=== PATIENT | male | born 1970 | race Caucasian/White ===

== ENCOUNTER 2016-10-05 09:35 | Observation (INO) | payer BC, OTHER ==
[2016-10-05 11:01] LABS: Hematocrit 46 % (42-52); Hemoglobin 15.1 g/dl (14.0-18.0); Mean Corpuscular HGB Conc 33 g/dl (31-36); Mean Corpuscular Hemoglobin 27 pg (27-31); Mean Corpuscular Volume 82 fL (80-94); Mean Platelet Volume 8 um3 (7.4-10.4); Red Blood Count 5.62 10^6/ul (4.0-5.4); Red Cell Distribution Width 14 % (10.5-15); White Blood Count 5.9 10^3/ul (3.5-10.8)
[2016-10-05] MEDS ORDERED: diPHENhydraMINE IV* 25 MG in NS 0.9% 50 ML* 50 ML IVPB ONE (11:08)
[2016-10-05] MEDS ORDERED: methylPREDNISolone 125 MG* 2 ML VIAL IV ONE (11:08)
[2016-10-05] MEDS ORDERED: NS 0.9% 1000 ML* 1,000 ML IV ONE (11:08)
[2016-10-05 11:09] LABS: Albumin 4.1 g/dL (3.2-5.2); BUN/Creatinine Ratio 8.7 (8-20); C Reactive Protein 5.37 mg/L (< 5.00); Calcium 9.4 mg/dL (8.6-10.3); EGFR African American 100.2 (>60); EGFR Non-African American 77.9 (>60); Globulin 3.3 g/dL (2-4); Magnesium 2.2 mg/dL (1.9-2.7); Potassium 3.8 mmol/L (3.5-5.0); Total Bilirubin 0.4 mg/dL (0.2-1.0); Total Protein 7.4 g/dL (6.4-8.9)
--- NOTE | 2016-10-05 11:24 | ED ---
Mayur Phillip Claudia, scribed for Amna Anaya MD on 10/05/16 at 1033 . Complex/Multi-Sys Presentation - HPI Summary HPI Summary: 45 year old male presents to the ED referred from [facility]. Pt with a rash which has progressed over the past few days. Pt notes that he has been on amoxicillin for about 8 days for a dental abscess. Pt states last dose taken yesterday. Pt had tooth extracted on Thursday. Pt states starting yesterday developed facial, lip, tongue swelling,rapid increase of diffuse rash on abdomen , back and lower legs with itchy sensation, nausea, chills, and arthralgias. Pt states hands and feet feel puffy Pt denies CP and vomiting. Pt note she took 2 benadryl last night with no alleviation - pt states he just "went to sleep" of Sx but has not taken anything today. He also notes that he thinks he has taken amoxicillin in the past but is unsure. Pt has not been to PCP in years. No know drug allergies. No issa inhibitor - History Of Current Complaint Chief Complaint: EDGeneral Time Seen by Provider: 10/05/16 10:23 Hx Obtained From: Patient Onset/Duration: Gradual Onset, Lasting Days, Still Present Timing: Constant Severity Currently: Mild Severity Initially: Mild Location: Pain At: - joints, feet, hands Associated Signs And Symptoms: Positive: Nausea, Other - rash. Negative: SOB, Vomiting, Diarrhea - Allergies/Home Medications Allergies/Adverse Reactions: Allergies Allergy/AdvReac Type Severity Reaction Status Date / Time No Known Allergies Allergy Verified 11/04/13 04:39 PMH/Surg Hx/FS Hx/Imm Hx Previously Healthy: Yes Endocrine/Hematology History: Denies: Hx Anticoagulant Therapy, Hx Diabetes Cardiovascular History: Denies: Hx Hypertension - Immunization History Date of Tetanus Vaccine: PT STATES UNSURE Date of Influenza Vaccine: NONE Infectious Disease History: No Infectious Disease History: Denies: Traveled Outside the [place] in Last 30 Days - Family History Known Family History: Positive: Diabetes - Social History Occupation: Employed Full-time Lives: With Family Alcohol Use: Occasionally Substance Use Type: Reports: None Hx Tobacco Use: Yes Smoking Status (MU): Current Every Day Smoker - pack a day Review of Systems Positive: Chills Eyes: Negative ENT: Negative Negative: Sore Throat, Ear Ache Negative: Chest Pain Negative: Shortness Of Breath Gastrointestinal: Negative Positive: Nausea. Negative: Vomiting Genitourinary: Negative Positive: Arthralgia, Myalgia, Edema Positive: Other - facial, tongue swelling with itching Neurological: Negative Negative: Weakness, Paresthesia, Numbness Psychological: Normal All Other Systems Reviewed And Are Negative: Yes Physical Exam Triage Information Reviewed: Yes Vital Signs On Initial Exam: Initial Vitals Temp Pulse Resp BP Pulse Ox 97.7 F 86 16 149/97 100 10/05/16 09:37 10/05/16 09:37 10/05/16 09:37 10/05/16 09:37 10/05/16 09:37 Vital Signs Reviewed: Yes Appearance: Positive: Well-Appearing, Pain Distress Skin: Positive: Other - Pt with erythematous, blotchy, slightly raised rash b/l LE midshin-feet and lower abd diffuse erythema with raised patches to back Pt with fullness of hands and feet diffusely, lips Pt with 1 small blister lesions left upper, inner lip No other oral lesions. Pt with small vesicle left 5th digit, medial aspect Head/Face: Positive: Other - mild edema lips site or recent dental extraction well appearing, no erythema, fluctance handling secretions, no increased WOB speaking full easy sentences, not posturing Eyes: Positive: Normal, EOMI, NIRAV ENT: Positive: Nasal congestion, TMs normal Neck: Positive: Supple, Nontender, No Lymphadenopathy Respiratory/Lung Sounds: Positive: Clear to Auscultation, Breath Sounds Present. Negative: Rales, Stridor, Wheezes Cardiovascular: Positive: Normal, RRR. Negative: Murmur Abdomen Description: Positive: Nontender, No Organomegaly, Soft Bowel Sounds: Positive: Present Musculoskeletal: Positive: Normal, Strength/ROM Intact Neurological: Positive: Normal, Sensory/Motor Intact, Alert, Oriented to Person Place, Time Psychiatric: Positive: Normal AVPU Assessment: Alert - Jannette Coma Scale Best Eye Response: 4 - Spontaneous Best Motor Response: 6 - Obeys Commands Best Verbal Response: 5 - Oriented Coma Scale Total: 15 Diagnostics - Vital Signs Vital Signs Temp Pulse Resp BP Pulse Ox 10/05/16 09:37 97.7 F 86 16 149/97 100 - Laboratory Lab Results: Lab Results 10/05/16 10/05/16 10/05/16 Range/Units 10:42 10:42 10:42 WBC 5.9 (3.5-10.8) 10^3/ul RBC 5.62 H (4.0-5.4) 10^6/ul Hgb 15.1 (14.0-18.0) g/dl Hct 46 (42-52) % MCV 82 (80-94) fL MCH 27 (27-31) pg MCHC 33 (31-36) g/dl RDW 14 (10.5-15) % Plt Count 227 (150-450) 10^3/ul MPV 8 (7.4-10.4) um3 Neut % (Auto) 62.4 (38-83) % Lymph % (Auto) 18.5 L (25-47) % Yates % (Auto) 8.7 (1-9) % Eos % (Auto) 7.9 H (0-6) % Baso % (Auto) 2.5 H (0-2) % Absolute Neuts (auto) 3.7 (1.5-7.7) 10^3/ul Absolute Lymphs (auto) 1.1 (1.0-4.8) 10^3/ul Absolute Monos (auto) 0.5 (0-0.8) 10^3/ul Absolute Eos (auto) 0.5 (0-0.6) 10^3/ul Absolute Basos (auto) 0.1 (0-0.2) 10^3/ul Absolute Nucleated RBC 0 10^3/ul Nucleated RBC % 0 ESR Pending Sodium 136 (133-145) mmol/L Potassium 3.8 (3.5-5.0) mmol/L Chloride 103 (101-111) mmol/L Carbon Dioxide 27 (22-32) mmol/L Anion Gap 6 (2-11) mmol/L BUN 9 (6-24) mg/dL Creatinine 1.04 (0.67-1.17) mg/dL Est GFR ( Amer) 100.2 (>60) Est GFR (Non-Af Amer) 77.9 (>60) BUN/Creatinine Ratio 8.7 (8-20) Glucose 78 (70-100) mg/dL Lactic Acid 1.3 (0.5-2.0) mmol/L Calcium 9.4 (8.6-10.3) mg/dL Magnesium 2.2 (1.9-2.7) mg/dL Total Bilirubin 0.40 (0.2-1.0) mg/dL AST 17 (13-39) U/L ALT 21 (7-52) U/L Alkaline Phosphatase 63 (34-104) U/L C-Reactive Protein 5.37 H (< 5.00) mg/L Total Protein 7.4 (6.4-8.9) g/dL Albumin 4.1 (3.2-5.2) g/dL Globulin 3.3 (2-4) g/dL Albumin/Globulin Ratio 1.2 (1-3) Result Diagrams: 10/05/16 10:42 10/05/16 10:42 Lab Statement: Any lab studies that have been ordered have been reviewed, and results considered in the medical decision making process. Re-Evaluation - Re-Evaluation 1 Re-Evaluation Time: 11:34 Comment: Pt is agreeable with the plan for Dr. Christina to admit for OBV. Complex Multi-Symp Course/Dx Assessment/Plan: Pt with progressive rash to legs, abd, back increasing x 24 hours, mild edema to lips, diffuse edema to hand and feet b/l. arthalgia, myalgia. Pt took Amox x 8 days for dental abscess. Differential includes viral syndrome, medication reaction, SJS. Will give benadryl, pred. check labs , CRP, ESR, urine. anticipate obv - Diagnoses Provider Diagnoses: Rash, Arthralgia - Physician Notifications Discussed Care Of Patient With: CONSULT TO HOPSITALIST CALLED. 11:29. 11:32 Pt care is discussed with Dr. Christina. Dr. Christina admits for OBV. 11:34 Time Discussed With Above Provider: 11:29 Instructed by Provider To: Admit As Observation - Dr. Christina 11:34 Discharge - Discharge Plan Condition: Stable Disposition: ADMITTED TO [facility] documentation as recorded by the Mayur randall Claudia accurately reflects the service I personally performed and the decisions made by , Amna Anaya MD.
[2016-10-05] MEDS ORDERED: diPHENhydraMINE PO* 25 MG PO PRN (11:34)
[2016-10-05 11:42] LABS: Erythrocyte Sed Rate 27 mm/Hr (0-14)
[2016-10-05 11:50] LABS: Urine Bilirubin Negative (Negative); Urine Glucose Negative (Negative); Urine Nitrite Negative (Negative)
[2016-10-05] MEDS: NS 0.9% 1000 ML* 1,000 ML IV SCH (13:09)
[2016-10-05] MEDS ORDERED: Acetaminophen TAB* 325 MG PO PRN (14:05)
[2016-10-05] MEDS: hydrOXYzine HCL TAB* 25 MG PO PRN ×2 (15:03→19:24)
[2016-10-05] MEDS: predniSONE TAB* 20 MG PO SCH (15:03)
--- NOTE | 2016-10-05 21:02 | HP ---
HISTORY AND PHYSICAL: DATE OF ADMISSION: 10/05/16 PRIMARY CARE PROVIDER: None. CHIEF COMPLAINT: Rash and mouth sore. HISTORY OF PRESENT ILLNESS: Mr. Yu is a 45-year-old male, who approximately 9 days ago developed a dental abscess. At that time, he was started on amoxicillin. One week ago, he had his tooth pulled and remained on the amoxicillin. The patient noted that either this past Thursday or yesterday morning, he began to have rash develop on his feet and ankles bilaterally. The patient states that the rash is very itchy. He also notes that his joints are quite sore. He notices most pain when he tries to get up to walk. He has no lesions on the soles of his feet, but putting pressure on his feet hurts. The patient has no other new medications. He did try athlete foot spray recently. Nobody in the family has anything like him. He denies any cough or shortness of breath. He denies any other systemic symptoms. The patient does state that his throat is sore. He notices that he has a blistered lesion on the underside of his upper lip. PAST MEDICAL HISTORY: None. PAST SURGICAL HISTORY: None. MEDICATIONS: None (the patient stopped amoxicillin the day prior to presentation). ALLERGIES: None. FAMILY HISTORY: Unknown as the patient is adopted. SOCIAL HISTORY: The patient smokes 1 pack per day. He drinks alcohol on occasion. 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 He is . He has 2 children. His is his healthcare proxy. REVIEW OF SYSTEMS: The patient denies any fevers. He does admit to feeling chills. His appetite has been good. He denies any chest pain or palpitations. No shortness of breath or cough. No abdominal pain, nausea, vomiting, or diarrhea. No hematochezia, no hematuria, no dysuria. No focal weakness or sensory loss. No sudden changes in vision. No dysphagia. He does admit to joint discomfort in his hands, wrists, and feet. Rashes noted as above. No anxiety or depression. PHYSICAL EXAMINATION GENERAL: The patient is a well-developed, middle-aged male sitting in the bed in no acute distress. VITAL SIGNS: Blood pressure 161/83, pulse 69, respirations 18, temp 97.4, O2 sat 100% on room air. HEENT: Pupils are equal, they are round, they react to light. Extraocular muscles intact. Oropharynx is clear. Oral mucosa is moist. There is a small 3 - to 4-mm ulceration on the underside of the upper lip. No other obvious ulcerations are noted. There is no submandibular, cervical, or supraclavicular adenopathy. NECK: Thyroid is not enlarged. No thyroid nodules are noted. LUNGS: Clear to auscultation bilaterally. CARDIAC: Normal S1, S2. Regular rate and rhythm. I do not appreciate any murmurs. ABDOMEN: Bowel sounds are present. Abdomen is soft, nontender, nondistended. MUSCULOSKELETAL: There is no cyanosis or clubbing of the digits. There is full active range of motion of all 4 extremities. NEURO: Cranial nerves II through XII are grossly intact. Sensation is intact to light touch throughout. Strength is 5/5 and symmetric, both upper and lower extremities bilaterally. PSYCH: The patient is alert. He is oriented x3. Affect appears appropriate. SKIN: Warm and dry. There is a diffuse rash. The lesions appear to be targetoid. There is a palpable rim of erythema surrounding the area of central pallor of most lesions. These appear to be clustered together on the dorsum of the feet, ankles, lower legs, medial thigh, abdomen, arms, and back. LABORATORY DATA: WBC 5.9, hemoglobin 15.1, hematocrit 46, platelets 227. Sodium 136, potassium 3.8, chloride 103, CO2 27, BUN 9, creatinine 1.04, glucose 78, lactic acid 1.3, calcium 9.4, magnesium 2.2. Bilirubin 0.4, AST 17 , ALT 21, alk phos 63. CRP 5.37. ESR 27. Albumin 4.1. Urinalysis revealed a specific gravity of 1.005 and otherwise negative for signs of infection. Influenza A and B negative. ASSESSMENT AND PLAN: Mr. Yu is a 45-year-old male who presents to the emergency room with complaints of rash and swelling of the lips and ulceration on the upper lip and is admitted for evaluation of this rash. My suspicion is that this represents erythema multiforme as a drug eruption following the administration of amoxicillin. 1. Probable erythema multiforme: At this point, given the mucosal involvement , the patient will be started on prednisone 60 mg p.o. daily. He already received Solu-Medrol 125 mg IV in the emergency room. He will have Atarax available for itching. We will continue gentle IV fluid hydration. My suspicion is the patient developed erythema multiforme as an eruption following the admission of amoxicillin. I will ask for Infectious Disease consultation tomorrow. I have already been in contact with Dr. Torres who is aware of the case. The patient will be supported symptomatically. In terms of the ulceration on the underside of the upper lip, it appears to be singular. The patient does complain of sore throat. So, perhaps, there is further mucosal involvement in the pharynx. The patient has been instructed to inform us if he has any worsening of these symptoms. 2. DVT prophylaxis: According to the Adult Thrombosis Prophylaxis Risk Factor Assessment Guide, the patient has a total risk factor score of 2 making him moderate risk. Ambulation will be utilized as his DVT prophylaxis. 3. Code status is full. TIME SPENT: Sixty-five minutes was spent admitting this patient. [id number]/[facility] #: [id number] DANILO
[2016-10-06] MEDS: hydrOXYzine HCL TAB* 25 MG PO PRN (02:01)
[2016-10-06] MEDS: NS 0.9% 1000 ML* 1,000 ML IV SCH (05:22)
[2016-10-06] MEDS ORDERED: Calcium Carbonate CHEW TAB* 500 MG (TUMS) PO PRN (05:56)
[2016-10-06 08:22] VITALS: BP 129/76
[2016-10-06] MEDS: predniSONE TAB* 20 MG PO SCH (08:57)
[2016-10-06] MEDS ORDERED: predniSONE TAB* 20 MG PO SCH (09:00)
--- NOTE | 2016-10-06 10:44 | PN ---
Subjective Date of Service: 10/06/16 Interval History: Pt is feeling well. He is antsy to go home. He denies any pain. No SOB. His mouth sores are better. His rash is better. Objective Active Medications: Acetaminophen (Tylenol Tab*) 650 mg PO Q4H PRN PRN Reason: PAIN Calcium Carbonate (Tums*) 500 mg PO Q4H PRN PRN Reason: INDIGESTION Hydroxyzine HCl (Atarax Tab*) 25 mg PO Q4H PRN PRN Reason: ITCHING Last Admin: 10/06/16 02:01 Dose: 25 mg Sodium Chloride (Ns 0.9% 1000 Ml*) 1,000 mls @ 75 mls/hr IV PER RATE [facility] Last Admin: 10/06/16 05:22 Dose: 75 mls/hr Prednisone (Deltasone Tab*) 60 mg PO DAILY [facility] Last Admin: 10/06/16 08:57 Dose: 60 mg Vital Signs 10/05/16 10/05/16 10/05/16 12:00 12:27 12:51 Temperature 98.2 F 97.4 F Pulse Rate 70 70 69 Respiratory 15 18 Rate Blood Pressure 128/71 128/71 161/83 (mmHg) O2 Sat by Pulse 98 100 Oximetry 10/05/16 10/05/16 10/05/16 12:56 15:01 15:19 Temperature 97.4 F 97.6 F Pulse Rate 69 89 Respiratory 18 16 18 Rate Blood Pressure 161/83 141/86 (mmHg) O2 Sat by Pulse 100 97 Oximetry 10/05/16 10/05/16 10/06/16 20:00 23:44 08:00 Temperature 97.7 F Pulse Rate 77 Respiratory 16 17 16 Rate Blood Pressure 145/63 (mmHg) O2 Sat by Pulse 95 Oximetry 10/06/16 08:03 Temperature 97.5 F Pulse Rate 78 Respiratory 16 Rate Blood Pressure 129/76 (mmHg) O2 Sat by Pulse 97 Oximetry Oxygen Devices in Use Now: None Appearance: Middle aged male sitting up in bed, NAD Eyes: No Scleral Icterus Ears/Nose/Mouth/Throat: Mucous Membranes Moist Respiratory: Symmetrical Chest Expansion and Respiratory Effort, Clear to Auscultation Cardiovascular: NL Sounds; No Murmurs; No JVD, RRR, No Edema Abdominal: NL Sounds; No Tenderness; No Distention Extremities: No Clubbing, Cyanosis Skin: No Nodules or Sclerosis, - - rash is much improved today Neurological: Alert and Oriented x 3 Result Diagrams: 10/05/16 10:42 10/05/16 10:42 Additional Lab and Data: Lab Results 10/05/16 10/05/16 10/05/16 Range/Units 10:42 10:42 10:42 WBC 5.9 (3.5-10.8) 10^3/ul RBC 5.62 H (4.0-5.4) 10^6/ul Hgb 15.1 (14.0-18.0) g/dl Hct 46 (42-52) % MCV 82 (80-94) fL MCH 27 (27-31) pg MCHC 33 (31-36) g/dl RDW 14 (10.5-15) % Plt Count 227 (150-450) 10^3/ul MPV 8 (7.4-10.4) um3 Neut % (Auto) 62.4 (38-83) % Lymph % (Auto) 18.5 L (25-47) % [place] % (Auto) 8.7 (1-9) % Eos % (Auto) 7.9 H (0-6) % Baso % (Auto) 2.5 H (0-2) % Absolute Neuts (auto) 3.7 (1.5-7.7) 10^3/ul Absolute Lymphs (auto) 1.1 (1.0-4.8) 10^3/ul Absolute Monos (auto) 0.5 (0-0.8) 10^3/ul Absolute Eos (auto) 0.5 (0-0.6) 10^3/ul Absolute Basos (auto) 0.1 (0-0.2) 10^3/ul Absolute Nucleated RBC 0 10^3/ul Nucleated RBC % 0 ESR Pending Sodium 136 (133-145) mmol/L Potassium 3.8 (3.5-5.0) mmol/L Chloride 103 (101-111) mmol/L Carbon Dioxide 27 (22-32) mmol/L Anion Gap 6 (2-11) mmol/L BUN 9 (6-24) mg/dL Creatinine 1.04 (0.67-1.17) mg/dL Est GFR ( Amer) 100.2 (>60) Est GFR (Non-Af Amer) 77.9 (>60) BUN/Creatinine Ratio 8.7 (8-20) Glucose 78 (70-100) mg/dL Lactic Acid 1.3 (0.5-2.0) mmol/L Calcium 9.4 (8.6-10.3) mg/dL Magnesium 2.2 (1.9-2.7) mg/dL Total Bilirubin 0.40 (0.2-1.0) mg/dL AST 17 (13-39) U/L ALT 21 (7-52) U/L Alkaline Phosphatase 63 (34-104) U/L C-Reactive Protein 5.37 H (< 5.00) mg/L Total Protein 7.4 (6.4-8.9) g/dL Albumin 4.1 (3.2-5.2) g/dL Globulin 3.3 (2-4) g/dL Albumin/Globulin Ratio 1.2 (1-3) Assess/Plan/Problems-Billing Mr Yu is a 45 yo M who was recently treated with amoxicillin for a dental abscess and then presented to the ER with c/o rash and mouth swelling. - Patient Problems (1) Erythema multiforme Current Visit: Yes Status: Acute Code(s): L51.9 - ERYTHEMA MULTIFORME, UNSPECIFIED SNOMED Code(s): 33665297 Comment: Rash is already much improved. Continue prednisone for another 6 days. His EM is likely secondary to amoxicillin. He is to never take amoxicillin again. Dr. Torres recommended allergy testing down the road to determine what PCN based Abx he is truly allergic to. (2) DVT prophylaxis Current Visit: Yes Status: Acute Code(s): PFP2488 - SNOMED Code(s): 537926757 Comment: ambulation (3) Full code status Current Visit: Yes Status: Acute Code(s): Z78.9 - OTHER SPECIFIED HEALTH STATUS SNOMED Code(s): 944493147 Status and Disposition: d/c home
--- NOTE | 2016-10-06 12:45 | CONS ---
CONSULTATION REPORT: DATE OF CONSULT: 10/06/16 REQUESTING PROVIDER: Coni Christina DO CONSULTING SERVICE: Infectious Disease. REASON FOR CONSULT: Rash after ANTIBIOTIC. IMPRESSION: 1. 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 2. Recent dental infection. RECOMMENDATION: 1. Continue prednisone 60 mg a day and then start tapering to 40 mg a day for 3 days and 20 mg a day for 3 days. 2. Outpatient allergy evaluation for skin testing to define the extent of his allergic reaction, in other words, is AMOXICILLIN or PENICILLIN. HISTORY OF PRESENT ILLNESS: This is a 45-year-old man with poor dentition who had a dental abscess and had the tooth pulled, started on AMOXICILLIN, which he has been on for about 10 days now. Then on Thursday or Thursday, he started to have a rash involving the feet and ankles that was itchy, but not painful. He did have some joint tenderness in his legs and feet. The skin rash spread to his trunk and arms, not in the face, palms, or soles. He noticed sore on his oral mucosa, no genital lesions. He came to the hospital on Thursday, was seen by Dr. Christina and admitted. I discussed the case with her before the visit and he was started on prednisone yesterday. He has had no fevers since he has been here. CRP was elevated. This morning, he has had fading of the rash in his feet and the oral lesion with no new lesions developing. He feels well. PAST MEDICAL HISTORY: Dental infection. MEDICATIONS: 1. Prednisone 60 mg a day. 2. Benadryl. 3. Hydroxyzine p.r.n. ALLERGIES: AMOXICILLIN. FAMILY HISTORY: No recurrent infections. SOCIAL HISTORY: Lives in [facility]. No sick contacts. REVIEW OF SYSTEMS: All negative except as noted above. PHYSICAL EXAM: General: He is awake and oriented, in no distress. Vital Signs : Temperature 36.4, heart rate 80, respiratory rate 16, blood pressure 130/70, and O2 saturation 97% on room air. HEENT: There is no conjunctival hemorrhage. Oropharynx without lesions. Neck: Neck is supple without nuchal rigidity. Lymph nodes: There is no cervical, supraclavicular, inguinal, axillary, or epitrochlear lymphadenopathy. Lungs: Clear to auscultation bilaterally. Heart: Regular rate and rhythm without murmurs, rubs, or gallops. Abdomen: Soft, nontender, and nondistended without hepatosplenomegaly. Skin: There is faded erythematous macules on his ankles and arms, which have a targetoid appearance and are in clusters. They are nonblanching. Musculoskeletal: There is no joint synovitis. DIAGNOSTIC STUDIES/LAB DATA: White blood cell count 5, hemoglobin 16, platelets 227. Creatinine is 1.0. CRP 5. Please see impressions and recommendations as outlined above, which I have discussed with Dr. Christina. Thanks for asking me to see Mr. Bansal in consultation. [id number]/[facility] #: [id number] MTDJj
--- NOTE | 2016-10-06 22:55 | DS ---
DISCHARGE SUMMARY: DATE OF ADMISSION: 10/05/16 DATE OF DISCHARGE: 10/06/16 PRIMARY CARE PROVIDER: None. PRINCIPAL DIAGNOSIS: Erythema multiforme secondary to amoxicillin administration. SECONDARY DIAGNOSIS: Tobacco abuse. DISCHARGE MEDICATION: Prednisone 40 mg p.o. daily x2 days, then 20 mg x2 days, then 10 mg x2 days. HOSPITAL COURSE: Mr. Yu is a 45-year-old male who was started on amoxicillin for a dental abscess approximately a week and a half ago, who then had his tooth pulled and this Thursday or Thursday prior to admission developed a rash initially beginning on his ankles and feet, then noticed on his arms, abdomen, and back. This rash was quite itchy. It is somewhat swollen. The patient also noticed an ulceration of the oral mucosa with associated swelling of his lips. The patient presented to the emergency room because of a mouth swelling and ulceration. The patient was admitted for evaluation of his rash. Ultimately this was felt to be erythema multiforme secondary to the administration of amoxicillin. He had already stopped his amoxicillin the day prior to admission. The patient was started on steroids with very good response. His rash on the day of discharge was already fading. He is no longer very itchy and has no pain. The patient was anxious to be discharged home and was discharged to continue on a course of prednisone. The patient has been instructed to never take amoxicillin again. It was recommended that he undergo allergy testing for determination if his allergic to other types of penicillin derived agents or if it is just the amoxicillin. In the meantime, the patient will indicate that he is ALLERGIC TO ALL PENICILLIN-BASED PRODUCTS. FOLLOWUP CONCERNS: The patient is being discharged home today on 10/06/16. ACTIVITY: Activity level is as tolerated. DIET: Regular. CONDITION ON DISCHARGE: Stable. TIME SPENT: 25 minutes was spent discharging this patient. [id number]/[facility] #: [id number] DANILO
== END 2016-10-06 11:00 | disposition home or self-care (01) ==
LOC: ED 09:35 → MED 11:33
PROVIDERS: ADMIT Hospitalist; ATTEND Hospitalist
DX: L27.0 Generalized skin eruption due to drugs and medicaments taken internally (principal); L51.9 Erythema multiforme, unspecified; T36.0X5A Adverse effect of penicillins, initial encounter; Y92.9 Unspecified place or not applicable; Z88.0 Allergy status to penicillin; F17.210 Nicotine dependence, cigarettes, uncomplicated
CPT/HCPCS: 36415; 80053; 81003; 83605; 83735; 85025; 85652; 86140; 87502; 96361; 96374; 96375; 99284; 99406; A9270-GY; G0378; J1200; J2930; J7512

== ENCOUNTER → 2016-10-08 04:35 | Emergency (ER) | payer BC ==
[~2016-10-08 04:35] MED LIST: Iohexol 300* (CONTRAST) 10 ML SDV IV ONE; Morphine INJ* 4 MG/ML 1 ML CARPUJECT IV ONE; NS 0.9% 1000 ML* 1,000 ML IV ONE; Ondansetron INJ* 2 MG/ML VIAL IV ONE; Pantoprazole IV* 40 MG IV ONE
[2016-10-08 05:17] LABS: Hematocrit 46 % (42-52); Hemoglobin 15.3 g/dl (14.0-18.0); Mean Corpuscular HGB Conc 34 g/dl (31-36); Mean Corpuscular Hemoglobin 27 pg (27-31); Mean Corpuscular Volume 82 fL (80-94); Mean Platelet Volume 8 um3 (7.4-10.4); Red Cell Distribution Width 14 % (10.5-15); White Blood Count 9.5 10^3/ul (3.5-10.8)
[2016-10-08 05:32] LABS: Albumin 3.8 g/dL (3.2-5.2); BUN/Creatinine Ratio 16.8 (8-20); Calcium 9.2 mg/dL (8.6-10.3); EGFR Non-African American 75.4 (>60); Globulin 3.2 g/dL (2-4); Potassium 3.5 mmol/L (3.5-5.0); Total Bilirubin 0.4 mg/dL (0.2-1.0)
--- NOTE | 2016-10-08 06:42 | ED ---
karsten Phillip Timothy, scribed for Yobany Hager on 10/08/16 at 0453 . Abdominal Pain/Male - HPI Summary HPI Summary: Martin Yu is a 45 yo male presenting to [facility] with 10/10 abd pain and nausea since 10/07/15 and black, tarry stool. 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 His MHx is significant for tobacco use, he denies any other MHx. - History of Current Complaint Chief Complaint: EDAbdPain Stated Complaint: ABD PAIN/BLACK STOOL Time Seen by Provider: 10/08/16 04:44 Hx Obtained From: Patient Onset/Duration: Sudden Onset, Lasting Days, Still Present Timing: Constant Severity Initially: Moderate Severity Currently: Moderate Pain Intensity: 10 Pain Scale Used: 0-10 Numeric Location: Diffuse Aggravating Factor(s): Nothing Alleviating Factor(s): Nothing Associated Signs And Symptoms: Positive: Other - black, tarry stool - Allergies/Home Medications Allergies/Adverse Reactions: Allergies Allergy/AdvReac Type Severity Reaction Status Date / Time Amoxicillin Allergy Rash Verified 10/06/16 13:33 PMH/Surg Hx/FS Hx/Imm Hx Endocrine/Hematology History: Denies: Hx Anticoagulant Therapy, Hx Diabetes Cardiovascular History: Denies: Hx Hypertension - Immunization History Date of Tetanus Vaccine: PT STATES UNSURE Date of Influenza Vaccine: NONE Infectious Disease History: No Infectious Disease History: Denies: Traveled Outside the [place] in Last 30 Days - Family History Known Family History: Positive: Diabetes - Social History Alcohol Use: Occasionally Substance Use Type: Reports: None Hx Tobacco Use: Yes Smoking Status (MU): Current Every Day Smoker Type: Cigarettes Review of Systems Constitutional: Negative Eyes: Negative ENT: Negative Cardiovascular: Negative Respiratory: Negative Positive: Abdominal Pain, Other - black tarry stool Genitourinary: Negative Musculoskeletal: Negative Skin: Negative Neurological: Negative Psychological: Normal All Other Systems Reviewed And Are Negative: Yes Physical Exam Triage Information Reviewed: Yes Vital Signs On Initial Exam: Initial Vitals Temp Pulse Resp BP Pulse Ox 98.5 F 88 24 181/105 96 10/08/16 04:41 10/08/16 04:41 10/08/16 04:41 10/08/16 04:41 10/08/16 04:41 Vital Signs Reviewed: Yes Appearance: Positive: Well-Appearing, No Pain Distress Skin: Positive: Warm, Skin Color Reflects Adequate Perfusion, Dry Head/Face: Positive: Normal Head/Face Inspection Eyes: Positive: EOMI, NIRAV ENT: Positive: Normal ENT inspection, Hearing grossly normal. Negative: Muffled /hoarse voice Neck: Positive: Supple, Nontender Respiratory/Lung Sounds: Positive: Clear to Auscultation, Breath Sounds Present Cardiovascular: Positive: RRR, Pulses are Symmetrical in both Upper and Lower Extremities Abdomen Description: Positive: Soft. Negative: Nontender - diffuse Bowel Sounds: Positive: Present Musculoskeletal: Positive: Normal, Strength/ROM Intact Neurological: Positive: Normal, Sensory/Motor Intact, Alert, Oriented to Person Place, Time Psychiatric: Positive: Normal Diagnostics - Vital Signs Vital Signs Temp Pulse Resp BP Pulse Ox 10/08/16 04:41 98.5 F 88 24 181/105 96 - Laboratory Lab Results: Lab Results 10/08/16 10/08/16 10/08/16 Range/Units 05:05 05:05 05:05 WBC 9.5 (3.5-10.8) 10^3/ul RBC 5.60 H (4.0-5.4) 10^6/ul Hgb 15.3 (14.0-18.0) g/dl Hct 46 (42-52) % MCV 82 (80-94) fL MCH 27 (27-31) pg MCHC 34 (31-36) g/dl RDW 14 (10.5-15) % Plt Count 227 (150-450) 10^3/ul MPV 8 (7.4-10.4) um3 Neut % (Auto) 77.7 (38-83) % Lymph % (Auto) 12.4 L (25-47) % [place] % (Auto) 7.2 (1-9) % Eos % (Auto) 2.0 (0-6) % Baso % (Auto) 0.7 (0-2) % Absolute Neuts (auto) 7.4 (1.5-7.7) 10^3/ul Absolute Lymphs (auto) 1.2 (1.0-4.8) 10^3/ul Absolute Monos (auto) 0.7 (0-0.8) 10^3/ul Absolute Eos (auto) 0.2 (0-0.6) 10^3/ul Absolute Basos (auto) 0.1 (0-0.2) 10^3/ul Absolute Nucleated RBC 0 10^3/ul Nucleated RBC % 0 INR (Anticoag Therapy) 0.94 (0.89-1.11) APTT 26.0 (26.0-36.3) seconds Sodium 135 (133-145) mmol/L Potassium 3.5 (3.5-5.0) mmol/L Chloride 102 (101-111) mmol/L Carbon Dioxide 26 (22-32) mmol/L Anion Gap 7 (2-11) mmol/L BUN 18 (6-24) mg/dL Creatinine 1.07 (0.67-1.17) mg/dL Est GFR ( Amer) 97.0 (>60) Est GFR (Non-Af Amer) 75.4 (>60) BUN/Creatinine Ratio 16.8 (8-20) Glucose 142 H (70-100) mg/dL Calcium 9.2 (8.6-10.3) mg/dL Total Bilirubin 0.40 (0.2-1.0) mg/dL AST 16 (13-39) U/L ALT 22 (7-52) U/L Alkaline Phosphatase 58 (34-104) U/L Total Protein 7.0 (6.4-8.9) g/dL Albumin 3.8 (3.2-5.2) g/dL Globulin 3.2 (2-4) g/dL Albumin/Globulin Ratio 1.2 (1-3) Lipase 21 (11.0-82.0) U/L Result Diagrams: 10/08/16 05:05 10/08/16 05:05 Lab Statement: Any lab studies that have been ordered have been reviewed, and results considered in the medical decision making process. - EKG 0448 Cardiac Rate: NL - 78 BPM EKG Rhythm: Sinus Rhythm EKG Interpretation: NSR @ 78 BPM. No acute changes. Re-Evaluation - Re-Evaluation First Eval Re-Evaluation Time: 04:53 Change: Unchanged Comment: Rectal exam showed black stool Abdominal Pain Fem Course/Dx - Course Assessment/Plan: Martin Yu is a 45 yo male presenting to [facility] with 10/10 abd pain and black tarry stool. He was discharged 10/06/16 with Zeeshan Héctor's disease after an overnight stay at [facility]. Pt will be signed out to Dr. Bernal pending CT A/P. - Diagnoses Provider Diagnoses: Abdominal pain - Provider Notifications Discussed Care Of Patient With: 0700 - Dr. Bernal (emergency med) - Signed out to Dr. Bernal Discharge - Discharge Plan Condition: Stable Disposition: OTHER Discharge Disposition Comment: Signed out to Dr. Bernal pending CT A/P Referrals: No Primary Care Phys,NOPCP [Primary Care Provider] - The documentation as recorded by the karsten randall Timothy accurately reflects the service I personally performed and the decisions made by , Yobany Hager.
--- NOTE | 2016-10-08 08:05 | RAD ---
CLINICAL HISTORY: Diverticulitis, abdominal pain COMPARISON: None TECHNIQUE: Multiple contiguous axial CT scans were obtained of the abdomen and pelvis after the administration of intravenous contrast. Coronal and sagittal multiplanar reformations are submitted for review. Oral contrast was administered. Delayed images were obtained through the abdomen FINDINGS: LUNG BASES: The lung bases are clear. LIVER: The liver is normal in shape, size, contour, and attenuation. BILE DUCTS: There is no intrahepatic or extrahepatic biliary dilatation. GALLBLADDER: The gallbladder is normal, without pericholecystic inflammatory change. PANCREAS: The pancreas is normal, without mass or ductal dilatation. SPLEEN: Normal in size and appearance. UPPER GI TRACT: Evaluation of the gastrointestinal tract is limited by incomplete gastric distention. The upper GI tract is unremarkable. SMALL BOWEL AND MESENTERY: The small bowel is normal in contour, course, and caliber. There is no obstruction or dilatation. COLON: The colon is normal in contour, course, caliber. There is no pericolonic inflammatory change. ADRENALS: Normal bilaterally. KIDNEYS: The kidneys are normal in shape, size, contour, and axis. There is no hydronephrosis or nephrolithiasis. BLADDER: The bladder is smooth in contour. PELVIC ORGANS: The prostate gland is normal. The seminal vesicles are symmetric. AORTA: There is minimal atherosclerosis of the abdominal aorta. IVC: Unremarkable LYMPH NODES: There is no lymphadenopathy by size criteria. ABDOMINAL WALL: There is a small fat-containing left inguinal hernia. There is a small fat-containing umbilical hernia. BONES AND SOFT TISSUES: There are mild diffuse degenerative changes. OTHER: None IMPRESSION: SMALL FAT-CONTAINING UMBILICAL AND LEFT INGUINAL HERNIAS. NO ACUTE CT PATHOLOGY OF THE VISUALIZED ABDOMEN OR PELVIS.
[2016-10-08 09:36] LABS: Urine Bacteria Absent (Absent); Urine Bilirubin Negative (Negative); Urine Glucose Negative (Negative); Urine Nitrite Negative (Negative)
--- NOTE | 2016-10-08 10:45 | ED ---
I, Mark Serna, scribed for Adelina Bernal MD on 10/08/16 at 0947 . Progress - Progress Note Progress Note: Signout pt from Dr. aHger. Waiting for CT A/P W report. talked at length with pt he did take one dose of peptobismal yesterday after seeing dark tarry stools. He has not had stools since. Pt is on his 4 th day of prednisone. Pt will stop prednisone in case this was a bit of a gi bleed from an ulcer since he did have epigastric pain and then some lower quadrant pain. He will be started on a proton pump inhibitor. He will also not use wine and decrease caffeine (he can't fully stop). Pt has an appt next week with pmd - Results/Orders Results/Orders: CT W A/P IMPRESSION: SMALL FAT-CONTAINING UMBILICAL AND LEFT INGUINAL HERNIAS. NO ACUTE CT PATHOLOGY OF THE VISUALIZED ABDOMEN OR PELVIS. Re-Evaluation - Re-Evaluation First Eval Re-Evaluation Time: 04:53 Change: Unchanged Comment: Rectal exam showed black stool Course/Dx - Diagnoses Provider Diagnoses: Abdominal pain - Provider Notifications Discussed Care Of Patient With: 0700 - Dr. Bernal (emergency med) - Signed out to Dr. Bernal The documentation as recorded by the matthewibKareem calzada Benjamin accurately reflects the service I personally performed and the decisions made by me, Adelina Bernal MD.
[2016-10-08 11:14] VITALS: BP 129/82
== END | disposition home or self-care (01) ==
LOC: ED 04:35
DX: R10.30 Lower abdominal pain, unspecified (principal)
CPT/HCPCS: 36415; 74177; 80053; 81003; 82272; 83690; 85025; 85610; 85730; 93005; 96374; 96375; 99284; J2270; J2405; Q9967

== ENCOUNTER 2018-08-04 16:25 | Emergency (ER) | payer BC, OTHER ==
[2018-08-04] MEDS ORDERED: Levofloxacin 500 MG IVPREMIX(* 500 MG/100 ML BAG IVPB ONE (16:37)
[2018-08-04] MEDS ORDERED: Tetan/Diph/Pertus SYR(Tdap)* 0.5 ML SYR(BOOSTRIX) use SYR IM ONE (16:38)
--- NOTE | 2018-08-04 16:39 | ED ---
Throat Pain/Nasal Congestion - HPI Summary HPI Summary: This pt is a 47 y/o male [facility] c/o loss of vision from left eye s/ p trauma today. Pt reports the pt was taking a deer off a pattern hanger hook when the hook hit him on his left eye. The hook is a big hook made to hold a deer and made out of steel. Pt states he heard a sudden pop and subsequently lost vision from his left eye. He is currently only able to see "bright light" and "red." His last tetanus shot is unknown. - History of Current Complaint Hx Obtained From: Patient Onset/Duration: Sudden Onset, Still Present Severity: Severe Associated Signs And Symptoms: Positive: Negative Cough: None Related History: Other (Noted In Comments) - s/p hitting left eye with a hook - Allergies/Home Medications Allergies/Adverse Reactions: Allergies Allergy/AdvReac Type Severity Reaction Status Date / Time Cephalosporins Allergy Severe Rash Verified 08/04/18 16:59 amoxicillin Allergy Rash Verified 08/04/18 16:59 bee venom protein (honey bee) Allergy Rash Verified 08/04/18 16:29 -lactam Allergy Severe Rash Uncoded 08/04/18 16:59 PMH/Surg Hx/FS Hx/Imm Hx Endocrine/Hematology History: Denies: Hx Anticoagulant Therapy, Hx Diabetes Cardiovascular History: Denies: Hx Hypertension - Immunization History Date of Tetanus Vaccine: PT STATES UNSURE Date of Influenza Vaccine: NONE Infectious Disease History: No Infectious Disease History: Denies: Traveled Outside the [place] in Last 30 Days - Family History Known Family History: Positive: Diabetes - Social History Alcohol Use: Occasionally Substance Use Type: Reports: None Hx Tobacco Use: Yes Smoking Status (MU): Current Every Day Smoker Type: Cigarettes Review of Systems Negative: Fever, Chills Eyes: Other - POS: left eye pain, loss of vision from left eye, bleeding from left eyelid Cardiovascular: Negative Respiratory: Negative Gastrointestinal: Negative Skin: Negative Neurological: Negative All Other Systems Reviewed And Are Negative: Yes Physical Exam - Summary Physical Exam Summary: Appearance: Well appearing, no pain distress Skin: warm, dry, reflects adequate perfusion Head/face: normal Eyes: two laceration over the upper left eye lid, through the lid margin, mild bleeding. Pupil on the left is sluggish and reactive to light. ENT: normal Neck: supple, nontender Respiratory: CTA, breath sounds present Cardiovascular: RRR, pulses symmetrical Abdomen: nontender, soft Musculoskeletal: normal, strength/ROM intact Neuro: normal, sensory motor intact, A&Ox3 Triage Information Reviewed: Yes Vital Signs On Initial Exam: Initial Vitals Temp Pulse Resp BP Pulse Ox 96.5 F 75 20 157/95 98 08/04/18 16:27 08/04/18 16:27 08/04/18 16:27 08/04/18 16:27 08/04/18 16:27 Vital Signs Reviewed: Yes Diagnostics - Vital Signs Vital Signs Temp Pulse Resp BP Pulse Ox 08/04/18 16:27 96.5 F 75 20 157/95 98 - Laboratory Result Diagrams: 08/04/18 17:00 Lab Statement: Any lab studies that have been ordered have been reviewed, and results considered in the medical decision making process. EENT Course/Dx - Course Assessment/Plan: Pt is a 47 y/o male who presents with loss of vision from left eye s/p trauma today. Pt reports the pt was taking a deer off a pattern hanger hook when the hook hit him on his left eye. He notes he lost vision from his left eye and is currently only able to see "bright light" and "red.". Blood work obtained. In the ED course the pt was given Levaquin, tetanus shot, morphine, zofran. I discussed pt care with Dr. Canchola, from [facility], who accepted the pt for transfer. Pt will be transferred to [facility]. - Differential Diagnoses Differential Diagnoses: Other - injury lf eye/orbit/blurring of vision - Diagnoses Provider Diagnoses: Eyelid laceration, left, Contusion of left orbit - Provider Notifications Discussed Care Of Patient With: Dr. Canchola - [facility] Time Discussed With Above Provider: 17:00 Instructed by Provider To: Transfer - Dr. Canchola accepts pt for transfer to [facility]. - Critical Care Time Critical Care Time: 30-74 min Discharge - Sign-Out/Discharge Documenting (check all that apply): Patient Departure - TRANSFER TO [facility] - Discharge Plan Condition: Stable Disposition: TRANS HIGHER LVL OF CARE FAC Referrals: Hamida Hanks CAREER DEVELOPMENT SPECIALIST [Nurse Practitioner] - - Billing Disposition and Condition Condition: STABLE Disposition: Trans Higher Lvl of Care Fac - Attestation Statements Document Initiated by Scribe: Yes Documenting Scribe: Mary Ann Robles Provider For Whom Scribe is Documenting (Include Credential): Yobany Hager MD Scribe Attestation: I, Mary Ann Robles, scribed for oYbany Hager MD on 08/04/18 at 1735. Scribe Documentation Reviewed: Yes Provider Attestation: The documentation as recorded by the Mary Ann randall accurately reflects the service I personally performed and the decisions made by me, Yobany Hager MD Status of Scribe Document: Viewed
[2018-08-04] MEDS ORDERED: Morphine VIAL* 4 MG/ML VIAL (1 ml vial) IV ONE (16:59)
[2018-08-04] MEDS ORDERED: Ondansetron INJ* 2 MG/ML VIAL IV ONE (17:00)
[2018-08-04 17:15] LABS: ABS Basophils 0.1 10^3/ul (0-0.2); ABS Eosinophils 0.1 10^3/ul (0-0.6); ABS Lymphocytes 1.9 10^3/ul (1.0-4.8); ABS Monocytes 0.7 10^3/ul (0-0.8); ABS Neutrophils 3.1 10^3/ul (1.5-7.7); ABS Nucleated RBC 0 10^3/ul; Eosinophil % 1.8 %; Hematocrit 47 % (42-52); Hemoglobin 15.9 g/dl (14.0-18.0); Lymphocyte % 32.6 %; Mean Corpuscular HGB Conc 34 g/dl (31-36); Mean Corpuscular Hemoglobin 28 pg (27-31); Mean Corpuscular Volume 83 fL (80-94); Mean Platelet Volume 8.1 fL (7.4-10.4); Nucleated Red Blood Cells % 0.2; Platelet Count 203 10^3/ul (150-450); Red Blood Count 5.65 10^6/ul (4.00-5.40); Red Cell Distribution Width 14 % (10.5-15); White Blood Count 5.9 10^3/ul (3.5-10.8)
[2018-08-04 17:23] LABS: Activated Partial Thrombo Time 28.5 seconds (26.0-36.3); INR 0.85 (0.77-1.02)
[2018-08-04] MEDS ORDERED: Levofloxacin TAB* 500 MG PO ONE (17:35)
[2018-08-04 17:36] LABS: Albumin 4.2 g/dL (3.2-5.2); Albumin/Globulin Ratio 1.3 (1-3); BUN/Creatinine Ratio 11.5 (8-20); Calcium 9.5 mg/dL (8.6-10.3); EGFR Non-African American 64.2 (>60); Globulin 3.3 g/dL (2-4); Total Bilirubin 0.4 mg/dL (0.2-1.0); Total Protein 7.5 g/dL (6.4-8.9)
[2018-08-04 17:38] VITALS: BP 141/94
[2018-08-04 18:23] LABS: Potassium 4.2 mmol/L (3.5-5.0)
== END 2018-08-04 17:45 | disposition short-term general hospital (02) ==
LOC: ED 16:25
DX: H57.12 Ocular pain, left eye (principal); S00.12XA Contusion of left eyelid and periocular area, initial encounter; W22.8XXA Striking against or struck by other objects, initial encounter; Y92.9 Unspecified place or not applicable; F17.210 Nicotine dependence, cigarettes, uncomplicated
CPT/HCPCS: 36415; 80053; 85025; 85610; 85730; 90471; 90715; 96365; 99284; J1956; J2270; J2405

== ENCOUNTER 2019-03-04 04:55 | Emergency (ER) | payer BC, OTHER ==
--- NOTE | 2019-03-04 05:51 | ED ---
Lower Extremity - HPI Summary HPI Summary: 48 year male presents with left knee injury yesterday. He was working on drainpipe when he went to push down the dirt and he placed shovel and there was no dirt underneath so he hyperextended his knee. He states that he is pain over lateral and medial aspect of his knee. He states the knee feels unstable like its going to give out. He states he has a previous partial tear to his ACL. no numbness or tingling. Denies any other injury. Hasn't taking anything for his pain. no medical conditions. 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 - History of Current Complaint Chief Complaint: EDExtremityLower Stated Complaint: KNEE INJURY PER PT Time Seen by Provider: 03/04/19 05:38 Pain Intensity: 4 - Allergies/Home Medications Allergies/Adverse Reactions: Allergies Allergy/AdvReac Type Severity Reaction Status Date / Time Cephalosporins Allergy Severe Rash Verified 03/04/19 05:03 amoxicillin Allergy Rash Verified 03/04/19 05:03 bee venom protein (honey bee) Allergy Rash Verified 03/04/19 05:03 -lactam Allergy Severe Rash Uncoded 03/04/19 05:03 PMH/Surg Hx/FS Hx/Imm Hx Endocrine/Hematology History: Denies: Hx Anticoagulant Therapy, Hx Diabetes Cardiovascular History: Denies: Hx Hypertension - Immunization History Date of Tetanus Vaccine: PT STATES UNSURE Date of Influenza Vaccine: NONE Infectious Disease History: No Infectious Disease History: Denies: Traveled Outside the [place] in Last 30 Days - Family History Known Family History: Positive: Diabetes - Social History Alcohol Use: Occasionally Substance Use Type: Reports: None Hx Tobacco Use: Yes Smoking Status (MU): Current Every Day Smoker Type: Cigarettes Review of Systems Negative: Fever Negative: Chest Pain Negative: Shortness Of Breath Positive: Myalgia - left knee pain All Other Systems Reviewed And Are Negative: Yes Physical Exam Triage Information Reviewed: Yes Vital Signs On Initial Exam: Initial Vitals Temp Pulse Resp BP Pulse Ox 97.9 F 63 16 140/98 97 03/04/19 04:55 03/04/19 04:55 03/04/19 04:55 03/04/19 04:55 03/04/19 04:55 Vital Signs Reviewed: Yes Appearance: Positive: Well-Appearing Skin: Positive: Warm, Dry Head/Face: Positive: Normal Head/Face Inspection Eyes: Positive: Normal, Conjunctiva Clear ENT: Positive: Pharynx normal Respiratory/Lung Sounds: Positive: Clear to Auscultation, Breath Sounds Present Cardiovascular: Positive: Normal, RRR Musculoskeletal: Positive: Limited @ - left knee, Other - tenderness lateral and medial aspect of left knee, good pulses, no laxity noted to joint, neg ballotments Neurological: Positive: Normal Psychiatric: Positive: Normal Diagnostics - Vital Signs Vital Signs Temp Pulse Resp BP Pulse Ox 03/04/19 04:55 97.9 F 63 16 140/98 97 - Laboratory Lab Statement: Any lab studies that have been ordered have been reviewed, and results considered in the medical decision making process. Lower Extremity Course/Dx - Course Course Of Treatment: 48 year male presents with left knee injury yesterday. He was working on drainpipe when he went to push down the dirt and he placed shovel and there was no dirt underneath so he hyperextended his knee. He states that he is pain over lateral and medial aspect of his knee. He states the knee feels unstable like its going to give out. He states he has a previous partial tear to his ACL. no numbness or tingling. Denies any other injury. Hasn't taking anything for his pain. no medical conditions. 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 On exam tenderness over the lateral and medial aspect of the knee. neurovascular intact. X-ray shows no fracture. Gave knee immobilizer. Will have follow-up with orthopedic. Patient understands agrees plan. - Diagnoses Differential Diagnosis/HQI/PQRI: Positive: Fracture (Closed), Sprain, Strain Provider Diagnoses: Left knee pain Discharge - Sign-Out/Discharge Documenting (check all that apply): Patient Departure Patient Received Moderate/Deep Sedation with Procedure: No - Discharge Plan Condition: Good Disposition: HOME Patient Education Materials: Knee Pain (ED) Referrals: Honey Robin NP [Primary Care Provider] - Marleny Melo MD [Medical Doctor] - Additional Instructions: Use immobilizer Stay off knee as much as possible Ice, elevate, Ibuprofen or Tylenol every 6 hours for pain Follow up with ortho Return to ED if develop or any new or worsening symptoms - Billing Disposition and Condition Condition: GOOD Disposition: Home
[2019-03-04 06:34] VITALS: BP 142/95
== END 2019-03-04 06:33 | disposition home or self-care (01) ==
LOC: ED 04:55
DX: M25.562 Pain in left knee (principal); X50.9XXA Other and unspecified overexertion or strenuous movements or postures, initial encounter; Y92.9 Unspecified place or not applicable; Y99.0 Civilian activity done for income or pay; F17.210 Nicotine dependence, cigarettes, uncomplicated; Z88.1 Allergy status to other antibiotic agents
CPT/HCPCS: 99282

== ENCOUNTER 2019-08-31 11:12 | Day surgery (SDC) | payer BC ==
[~2019-08-31 11:12] MED LIST changes: +Buffered Lidocaine 1% SYRIN* 1 ML/SYRINGE INTRADERM ONE; -Iohexol 300* (CONTRAST) 10 ML SDV IV ONE; +Lactated Ringers 1000 ML Bag* 1,000 ML IV SCH; -Morphine INJ* 4 MG/ML 1 ML CARPUJECT IV ONE; -NS 0.9% 1000 ML* 1,000 ML IV ONE; -Ondansetron INJ* 2 MG/ML VIAL IV ONE; -Pantoprazole IV* 40 MG IV ONE
[2019-08-31] MEDS ORDERED: Clindamycin 900 MG/D5W BAG(*) 900 MG/50 ML BAG IVPB ONE (12:09)
[2019-08-31] MEDS ORDERED: Bupivacaine 0.25% EPI 200,000* 30 ML SDV ONE (13:49)
[2019-08-31] MEDS ORDERED: Rocuronium* 10 MG/ML VIAL ONE (14:05)
[2019-08-31] MEDS ORDERED: Propofol* 10 MG/ML 20 ML BTL ONE (14:05)
[2019-08-31] MEDS ORDERED: HYDROmorphone INJ1* 1 MG/ML SYRINGE ONE (14:05)
[2019-08-31] MEDS ORDERED: Dexamethasone IV* 4 MG/ML 1 ML (4 MG) ONE (15:26)
[2019-08-31] MEDS ORDERED: Ondansetron INJ* 2 MG/ML VIAL ONE (15:27)
[2019-08-31] MEDS ORDERED: Glycopyrrolate IV* 0.2 MG/ML 1 ML VIAL ONE (15:27)
[2019-08-31] MEDS ORDERED: Neostigmine Methylsulfate* 1 MG/ML 10 ML VIAL (1 mg/ml) ONE (15:27)
[2019-08-31] MEDS ORDERED: Ketorolac INJ* 30 MG/ML 1 ML VIAL ONE (15:28)
--- NOTE | 2019-08-31 15:51 | BRIEFOPN ---
Brief Operative/Procedure Note - Operation Details Pre-Op Diagnosis: Left inguinal hernia and umbilical hernia Post-Op Diagnosis: Left inguinal hernia and umbilical hernia Procedures: Laparoscopic Left inguinal hernia repair with mesh and open umbilical hernia repair Surgeon(s)/Proceduralists: Dr. Ospina. Assist: PATI Coe Anesthesia: GETA Estimated Blood Loss: <25cc Findings: As above Specimen(s)/Culture(s) Description: None Complications: None
[2019-08-31] MEDS ORDERED: Naloxone* 0.4 MG/ML 1 ML VIAL IV PRN (15:52)
[2019-08-31] MEDS ORDERED: Acetaminophen TAB* 325 MG PO PRN (15:52)
[2019-08-31] MEDS ORDERED: DiMENhydriNATE IV* 50 MG/ML VIAL IV PUSH PRN (15:52)
[2019-08-31] MEDS ORDERED: oxyCODONE TAB* 5 MG TAB PO PRN (15:52)
[2019-08-31] MEDS ORDERED: fentaNYL* 50 MCG/ML 2 ML VIAL (100 MCG VIAL) ONE (16:25)
[2019-08-31] MEDS: fentaNYL* 50 MCG/ML 2 ML VIAL (100 MCG VIAL) IV PRN ×3 (16:26→16:58)
[2019-08-31 17:24] VITALS: BP 154/91
--- NOTE | 2019-09-01 05:03 | OP ---
CC: Primary Care Doctor; [facility] * DATE OF OPERATION: 08/31/19 - [facility] DATE OF : 74 SURGEON: Andrea Ospina MD ANESTHESIA: General. PRE-OP DIAGNOSES: 1. Left inguinal hernia. 2. Umbilical hernia. POST-OP DIAGNOSES: 1. Left inguinal hernia. 2. Umbilical hernia. OPERATIVE PROCEDURE: Laparoscopic left inguinal hernia repair with mesh and open umbilical hernia repair. ESTIMATED BLOOD LOSS: Minimal. FLUIDS: Crystalloid fluid given. See Anesthesia report for details. SPECIMEN: None. DRAINS: None. DESCRIPTION OF PROCEDURE: The patient was identified in the preoperative area, the hair was clipped. The patient was marked, taken attention to sol the left side. Consent was signed and he was taken to the operating room, placed on the operating table in the supine position. Preoperative antibiotics given. Sequential devices were placed to bilateral lower extremities. General anesthesia was induced. The patient's abdomen was prepped and draped in standard surgical fashion, time-out was performed. An infraumbilical incision was made. This was deepened down to the left-sided rectus fascia, which was incised on the rectus pillar, retracted laterally. We entered into the preperitoneal space and used a balloon dilator under direct vision to dissect out this space. We then placed a blunt cannula into the preperitoneal plane and allowed to insufflate to a pressure of 12 mmHg. Laparoscope was inserted through this and there was no significant bleeding. We get to see most of the anterior abdominal wall inferiorly, but not much in just half from the midline. We placed two 5 mm trocars in the lower midline into the preperitoneal space and then proceeded to dissect this out. Blunt dissection was carried out to expose the midline pubis as well as the Dangelo's ligament on the left. There was no evidence of a direct hernia. Epigastric vessels were identified and isolated, maintained anteriorly and we dissected bluntly the lateral space of [place]. Next, the spermatic structures were identified, were then skeletonized. A large lipoma with the cord was reduced, but not removed. We identified the peritoneal reflection, but there was no significant indirect hernia. Decision was made to mesh repair at this point. A full myopectineal orifice was exposed and dissected free. We then placed a Bard 3DMax large mesh left- sided into the preperitoneal space, allowed it to unfurl. We tacked at midline as well as a Dangelo's ligament also laterally. It covered the direct and indirect space as well and did not curl onto itself and was not wrinkled or taut. We then allowed the preperitoneal space to collapse. Trocars removed under direct vision. Attention was turned towards the umbilicus. We dissected the umbilical skin off of the sac. The fascia and the umbilical hernia was cleared off and then interrupted 0 Prolene sutures were used to reapproximate the umbilical defect, which appeared to be approximately 1.5 cm. The wound was then irrigated. We then reapproximated the anterior fascia of the initial incision just left off midline with a 0-Vicryl suture and then tacked the umbilical skin with 2-0 Vicryl suture and then closed all three skin incisions with 4-0 Monocryl subcuticular sutures. Steri-Strips and sterile dressing were applied. The patient tolerated the procedure well, was transferred to the PACU in stable condition. [id number]/[facility] #: [id number] DANILO
== END 2019-08-31 17:33 | disposition home or self-care (01) ==
LOC: OR 11:12
PROVIDERS: ATTEND Surgery
DX: K40.90 Unilateral inguinal hernia, without obstruction or gangrene, not specified as recurrent (principal); K42.9 Umbilical hernia without obstruction or gangrene; F17.200 Nicotine dependence, unspecified, uncomplicated; Z88.0 Allergy status to penicillin
CPT/HCPCS: C1781; J1100; J1170; J1885; J2405; J2704; J2710; J3010

== ENCOUNTER 2022-04-22 15:48 | Observation (INO) ==
[2022-04-22 16:17] LABS: ABS Lymphocytes 1.8 10^3/ul (1.0-4.8); ABS Monocytes 0.7 10^3/ul (0-0.8); ABS Neutrophils 4.3 10^3/ul (1.5-7.7); Eosinophil % 0.6 %; Hematocrit 41 % (42-52); Lymphocyte % 26.3 %; Mean Corpuscular HGB Conc 34 g/dL (31-36); Mean Corpuscular Hemoglobin 29 pg (27-31); Mean Corpuscular Volume 84 fL (80-94); Mean Platelet Volume 7.7 fL (7.4-10.4); Nucleated Red Blood Cells % 0.1; Platelet Count 223 10^3/uL (150-450); Red Blood Count 4.89 10^6 /uL (4.18-5.48); Red Cell Distribution Width 15 % (10-15)
[2022-04-22 16:56] LABS: ALT 36 U/L (7-52); AST 23 U/L (13-39); Albumin 4.4 g/dL (3.2-5.2); Albumin/Globulin Ratio 1.4 (1-3); Alcohol, S < 13 mg/dL (<13); Alkaline Phosphatase 57 U/L (35-149); Anion Gap 8 mmol/L (2-11); Blood Urea Nitrogen 13 mg/dL (6-24); CO2 Carbon Dioxide 26 mmol/L (22-32); Calcium 9.5 mg/dL (8.6-10.3); Chloride 103 mmol/L (101-111); Globulin 3.1 g/dL (2-4); Glucose 94 mg/dL (70-100); Potassium 3.9 mmol/L (3.5-5.0); Sodium 137 mmol/L (135-145); Total Protein 7.5 g/dL (6.4-8.9); eGFR CKD-EPI 76.4 (>60)
[2022-04-22] MEDS ORDERED: Iohexol 350 (CONTRAST) 500 ML MDV IV ONE (18:36)
[2022-04-22] MEDS ORDERED: Enoxaparin 40 MG/0.4 ML SYR SUBCUT SCH (19:00)
[2022-04-22 23:05] LABS: Magnesium 2.1 mg/dL (1.9-2.7)
[2022-04-23] MEDS ORDERED: Nicotine PATCH 21 MG/24 HR PATCH TRANSDERM SCH (09:00)
[2022-04-23] MEDS ORDERED: Lactated Ringers 1000 ml BAG 1,000 ML IV ONE (09:06)
[2022-04-23] MEDS ORDERED: Varenicline 1 mg TAB (NF) PO SCH (10:00)
[2022-04-23] MEDS ORDERED: Regadenoson 0.4 MG/5 ML SYRINGE ONE (11:09)
[2022-04-23] MEDS ORDERED: Perflutren Lipid Microsphere 3 ML VIAL ONE (11:10)
[2022-04-23 17:57] VITALS: BP 118/90
== END 2022-04-23 18:15 | disposition home or self-care (01) ==
LOC: ED 15:48 → EDHOLD 15:48 → MEDTELE 04-23 09:16
PROVIDERS: ADMIT Hospitalist; ATTEND Hospitalist